=== PATIENT | female | born 1955 | race Caucasian/White ===

== ENCOUNTER 2016-06-30 00:50 | Emergency (ER) | payer OTHER ==
[~2016-06-30] VITALS: Ht 162.6 cm; Wt 94.3 kg
[2016-06-30] MEDS ORDERED: OMEPRAZOLE40 MG PO (01:01)
[2016-06-30 01:59] LABS: ABSOLUTE NEUTROPHILS 3.4 thou/uL (1.4-8.2); BASOPHILS 0.9 % (0.0-2.0); HEMATOCRIT 40.8 % (37.0-47.0); HEMOGLOBIN 13.3 gm/dL (12.0-15.0); LYMPHOCYTES 39.3 % (24.0-44.0); MCH 27.6 pg (26.0-34.0); MCHC 32.7 g/dL (28.0-37.0); MCV 84.4 fL (80.0-100.0); MONOCYTES 8.5 % (1.0-8.0); PLATELET COUNT 228 thou/uL (150-400); POLYS 48.3 % (36.0-66.0); RBC 4.83 mil/uL (4.20-5.00); RDW 14.5 % (10.5-14.5)
[2016-06-30 02:00] LABS: MANUAL DIFF NO
[2016-06-30 02:06] LABS: CALCIUM 9.6 mg/dL (8.5-10.1); POTASSIUM 3.8 mmol/L (3.5-5.1)
[2016-06-30] MEDS ORDERED: BACTRIM DS TAB1 EACH PO (04:10)
[2016-06-30] MEDS ORDERED: KEFLEX500 MG PO (04:10)
[2016-06-30 06:00] VITALS: BP 106/62
== END 2016-06-30 06:24 | disposition home or self-care (01) ==
LOC: ER 00:50
PROVIDERS: Emergency Medicine
DX: L03.114 Cellulitis of left upper limb (principal); Z88.8 Allergy status to other drugs, medicaments and biological substances